=== PATIENT | female | born 1995 | race Caucasian/White ===

== ENCOUNTER 2018-06-20 14:47 | Emergency (ER) | payer OTHER ==
[~2018-06-20] VITALS: Ht 172.7 cm; Wt 68.9 kg
== END 2018-06-20 18:08 | disposition home or self-care (01) ==
LOC: ER 14:47
DX: H81.13 Benign paroxysmal vertigo, bilateral (principal); J11.1 Influenza due to unidentified influenza virus with other respiratory manifestations; M54.2 Cervicalgia